=== PATIENT | male | born 1995 ===

== ENCOUNTER 2018-01-21 19:54 | Emergency (ER) | payer BC ==
--- NOTE | 2018-01-21 20:38 | RAD ---
INDICATION: Left elbow injury. TECHNIQUE: 4 views of the left elbow were obtained. FINDINGS: There is a joint effusion present. There is a linear fracture extending across the midportion of the radial head. There appears to be mild depression of the lateral articular surface. No other fractures are seen. IMPRESSION: SLIGHTLY DISPLACED RADIAL HEAD FRACTURE.
--- NOTE | 2018-01-21 20:39 | RAD ---
INDICATION: Left forearm injury. TECHNIQUE: 2 views of the left forearm were obtained. FINDINGS: Again note is made of a slightly depressed fracture of the radial head. No additional fracture is seen. IMPRESSION: SLIGHTLY DEPRESSED FRACTURE OF THE RADIAL HEAD, NO ADDITIONAL FRACTURE.
--- NOTE | 2018-01-21 21:39 | UC ---
Elbow Pain - HPI Summary HPI Summary: Patient is a 22-year-old male presenting to the with chief complaint of left elbow pain radiating into the ipsilateral forearm without numbness or tingling. Pain is aggravated with supination and pronation, flexion and extension but relieved with rest. Relieved with ice and he has taken ibuprofen with mild amount relief of pain. He states he fell directly onto the elbow approximately 3 hours prior to arrival. He has been able to flex and extend, but with pain. Denies any color or temperature changes. Pulses +2 intact bilaterally. - History of Current Complaint Chief Complaint: UCUpperExtremity Stated Complaint: ARM INJURY Time Seen by Provider: 01/21/18 20:14 Hx Obtained From: Patient Onset/Duration: Minutes Severity Initially: Mild Severity Currently: Mild Pain Intensity: 6 Pain Scale Used: 0-10 Numeric Location Of Pain: Is Discrete @ - absolutely Character: Aching Aggravating Factor(s): Movement Alleviating Factor(s): Rest Associated Signs And Symptoms: Positive: Negative - Allergies/Home Medications Allergies/Adverse Reactions: Allergies Allergy/AdvReac Type Severity Reaction Status Date / Time No Known Allergies Allergy Verified 01/21/18 20:06 Home Medications: Home Medications NK [No Home Medications Reported] 01/21/18 [History Confirmed 01/21/18] PMH/Surg Hx/FS Hx/Imm Hx Previously Healthy: Yes - Surgical History Surgical History: None - Family History Known Family History: Positive: Unknown - Social History Occupation: Employed Full-time Alcohol Use: Occasionally Substance Use Type: None Smoking Status (MU): Never Smoked Tobacco Review of Systems Constitutional: Negative Skin: Negative ENT: Negative Respiratory: Negative Motor: Negative Neurovascular: Negative - Is Musculoskeletal: Arthralgia - L elbow pain Neurological: Negative Is Patient Immunocompromised?: No All Other Systems Reviewed And Are Negative: Yes Physical Exam Triage Information Reviewed: Yes Appearance: Well-Appearing, Well-Nourished Vital Signs: Initial Vital Signs Temp 97.8 F 01/21/18 20:01 Pulse 104 01/21/18 20:01 Resp 18 01/21/18 20:01 BP 136/82 01/21/18 20:01 Pulse Ox 99 01/21/18 20:01 Vital Signs Reviewed: Yes Eye Exam: Normal Eyes: Positive: Conjunctiva Clear Neck exam: Normal Neck: Positive: Supple, No Lymphadenopathy Respiratory Exam: Normal Respiratory: Positive: Chest non-tender, Lungs clear Cardiovascular Exam: Normal Cardiovascular: Positive: RRR Musculoskeletal: Positive: Strength Limited @ - left elbow flexion and extension - no ROM limitations Neurological Exam: Normal Neurological: Positive: Alert Psychological: Positive: Normal Response To Family, Age Appropriate Behavior Skin Exam: Normal Elbow Pain Course/Dx - Course Course Of Treatment: During the course of treatment, the patient is evaluated for left elbow pain. X-ray obtained which shows a slightly displaced radial head fracture. Sling is given encouragement of extension and flexion of the elbow with the emphasis on fully straightening and flexing the joint. Supination and pronation exercises important. Most likely this is a niko type I or type II radial head fracture but patient has full range of motion. I have discussed with patient that if his range of motion is is restricted in any way he needs to return to the or ED he is to follow-up with ortho within 1 week. He will continue to practice full range of motion exercises, use ibuprofen x 1 week and keep in sling 24-48 hours for comfort. - Differential Dx/Diagnosis Differential Diagnosis/HQI/PQRI: Contusion, Fracture (Closed), Fracture (Open) Provider Diagnoses: Fracture of the Radial Head Discharge - Discharge Plan Condition: Stable Disposition: HOME Patient Education Materials: Elbow Fracture (ED) Referrals: No Primary Care Phys,NOPCP [Primary Care Provider] - Valerie Dubose MD [Medical Doctor] - Additional Instructions: Ibuprofen 600 mg 3 times daily Ice to the area Range of motion exercises as discussed Keep in sling for approximately 24-48 hours
== END 2018-01-21 21:00 | disposition home or self-care (01) ==
LOC: UCEAST 19:54
DX: S52.122A Displaced fracture of head of left radius, initial encounter for closed fracture (principal); W19.XXXA Unspecified fall, initial encounter; Y93.9 Activity, unspecified; Y92.9 Unspecified place or not applicable
CPT/HCPCS: 99202; G0463